=== PATIENT | male | born 1970 | race Caucasian/White ===

== ENCOUNTER 2016-12-28 23:11 | Emergency (ER) | payer OTHER ==
[~2016-12-28] VITALS: Ht 175.3 cm; Wt 117.9 kg
[2016-12-29 00:44] VITALS: BP 108/66
--- NOTE | 2016-12-29 00:52 | ED UPPER/LOWER EXTREMITY COMPL ---
History of Present Illness General Chief Complaint: Lower Extremity Problems Stated Complaint: " PER PT BOTH LEGS PAIN" Source: patient Exam Limitations: no limitations Vital Signs & Intake/Output Vital Signs & Intake/Output Vital Signs Date Time Temp Pulse Resp B/P B/P Pulse O2 O2 Flow FiO2 Mean Ox Delivery Rate 12/29 0044 97.9 90 22 108/66 96 Room Air Room Air Allergies Coded Allergies: No Known Allergies (12/29/16) Reconcile Medications Cyclobenzaprine HCl 10 MG TABLET 1 TAB PO TID PRN SPASM Ibuprofen 800 MG TABLET 1 TAB PO TID PRN PAIN Methylprednisolone. (Medrol) 4 MG TAB.DS.PK 1 DP PO AD INFLAMMATION 6 on day 1 then reduce by one tablet daily until gone Oxycodone HCl/Acetaminophen (Percocet 5-325 MG Tablet) 5 MG-325 MG TABLET 1 TAB PO Q4-6 PRN PAIN Triage Note: 46YO MALE TOTRIAGE W/CO LOW BACK PAIN AND L LEG PAIN SP FALL ON THURS PM. STATES NO RELIEF AFTER ADVILL Triage Nurses Notes Reviewed? yes Onset: Abrupt Duration: day(s): (FEW) Timing: recent history Severity: moderate, severe Pain/Injury Location: Right: Leg. Method of Injury: MOVING HEAVY ITEMS Modifying Factors: Worsens With: movement. HPI: This is a 46-year-old male who presents to the ER with chief complaint of low back pain radiating down the back of his right leg for the last few days. He states he is moving things in his garage and got stuck between them. He was going to fall down but then caught himself. Since that time he's had moderate to severe back pain worse with movement. He states that he gets muscle spasms in the back of his leg. No numbness or weakness. No difficulty with bowel or bladder. No past history of similar symptoms. He does see a chiropractor. Past History Travel History Traveled to [place] past 21 day No Medical History Any Pertinent Medical History? none Surgical History Surgical History: non-contributory Psychosocial History What is your primary language Haitian Tobacco Use: Quit >30 days ago ETOH Use: occasional use Family History Hx Contributory? No Review of Systems Review of Systems Constitutional: Denies: chills, fever. EENTM: Reports: no symptoms. Respiratory: Denies: cough, short of breath. Cardiovascular: Denies: chest pain. Gastrointestinal/Abdominal: Reports: no symptoms. Genitourinary: Reports: no symptoms. Musculoskeletal: Reports: back pain, muscle pain, muscle stiffness. Skin: Reports: no symptoms. Neurological/Psychological: Reports: no symptoms. Hematologic/Endocrine: Denies: bruising, bleeding, polyuria, polydipsia. Immunological: Denies: splenectomy. All Other Systems: Reviewed and Negative Physical Exam Physical Exam General Appearance: well developed/nourished, mild distress Head: atraumatic Eyes: Bilateral: PERRL, EOMI. Ears, Nose, Throat: normal pharynx, normal ENT inspection, hearing grossly normal Neck: normal inspection, supple Cardiovascular/Respiratory: regular rate/rhythm Peripheral Pulses: 2+ radial (R), 2+ radial (L) Back: normal inspection, FULL RANGE OF MOTION Leg Left: normal range of motion, normal inspection Leg Right: normal range of motion, normal inspection Hip Left: normal range of motion, normal inspection Hip Right: normal range of motion, normal inspection Knee Left: normal range of motion, normal inspection Knee Right: normal range of motion, normal inspection Foot Left: normal inspection, normal range of motion Foot Right: normal inspection, normal range of motion Skin: intact, normal color, warm/dry Lymphatic: no anterior cervical radha Comments: positive straight right leg raise Progress Differential Diagnosis: sciatica, disc disease Plan of Care: EXAMINATION CONSISTENT WITH SCIATICA NEURO INTACT 5/5 STRENGTH LOWER EXTREMITIES, B/L PLANTAR FLEXION Departure Departure Time of Disposition: 108 Disposition: HOME OR SELF CARE Condition: Stable Clinical Impression Primary Impression: Sciatica of right side Referrals: PATIENT HAS NO PRIMARY CARE DR (PCP/Family) Additional Instructions: Take the ibuprofen, Medrol Dosepak, Flexeril and Percocet as directed. Please follow up with your doctor in the office. Return as needed. Departure Forms: Customer Survey General Discharge Information Prescriptions: Current Visit Scripts Methylprednisolone. (Medrol) 1 DP PO AD #1 DP 6 on day 1 then reduce by one tablet daily until gone Cyclobenzaprine HCl 1 TAB PO TID PRN SPASM #30 TAB Ibuprofen 1 TAB PO TID PRN PAIN #20 TAB Oxycodone HCl/Acetaminophen (Percocet 5-325 MG Tablet) 1 TAB PO Q4-6 PRN PAIN #10 TAB
[2016-12-29] MEDS ORDERED: CYCLOBENZAPRINE10 M1 PO ×2 (01:11→01:12)
[2016-12-29] MEDS ORDERED: PERCOCET 5-3251 EACH PO ×2 (01:11→01:12)
[2016-12-29] MEDS ORDERED: MEDROL4 M2 PO ×2 (01:11→01:12)
[2016-12-29] MEDS ORDERED: IBUPROFEN800 M1 PO ×2 (01:11→01:12)
== END 2016-12-29 01:13 ==
LOC: ERH 23:11
DX: M54.41 Lumbago with sciatica, right side (principal)